=== PATIENT | male | born 1980 | race Caucasian/White ===

== ENCOUNTER 2018-10-20 10:34 | Emergency (ER) | payer SELFPAY ==
[~2018-10-20] VITALS: Ht 172.7 cm; Wt 78.5 kg
[2018-10-20 10:40] VITALS: Ht 172.7 cm; Wt 78.5 kg
[2018-10-20 11:53] VITALS: BP 126/80
== END 2018-10-20 11:53 | disposition home or self-care (01) ==
LOC: ED 10:34
DX: T22.012A Burn of unspecified degree of left forearm, initial encounter (principal); X08.8XXA Exposure to other specified smoke, fire and flames, initial encounter; Y93.89 Activity, other specified; Y92.89 Other specified places as the place of occurrence of the external cause; Y99.8 Other external cause status
CPT/HCPCS: 90715